=== PATIENT | male | born 1960 | race Caucasian/White ===

== ENCOUNTER 2021-12-03 10:26 | Outpatient (CLI) | payer OTHER, SELFPAY | END 2021-12-03 10:27 | disposition home or self-care (01) | LOC: AMB 12-15 19:36 | PROVIDERS: Visit Provider Family Medicine | DX: R50.9 Fever, unspecified (principal); R11.2 Nausea with vomiting, unspecified | CPT/HCPCS: A0425; A0427 ==

== ENCOUNTER 2025-01-17 10:31 | Emergency (ER) | payer OTHER, SELFPAY ==
--- OUTSIDE RECORDS SUMMARY | 2025-01-17 10:34 | XMS_ITS | Clinical Summary ---
Author Organization [facility] Address [address] [place] [id number] Care Team Providers Care Chemical Blender Name Role Phone Jami Hassan Primary Care Provider Allergies Active Allergy Reactions Criticality Noted Date Comments Levofloxacin Other - Describe In Comment Field 08/29/2015 Chest tightness but per patient only occurs when taking it for extended period of time if only for a few days no issues Lisinopril Cough 08/01/2022 Sulfa (Sulfonamide Antibiotics) Chest Pain 11/18/2013 Medications fluticasone (50 mcg per actuation) nasal solution (FLONASE)Indicati ons:Epigastric pain,Gastroesopha geal reflux disease without esophagitis,Hiata l hernia Inhale 2 Sprays to both nostrils two times daily. 3 Active escitalopram oxalate 10 mg tabletIndications :Panic attacks Take 1 Tablet (10 mg) by mouth once daily in the morning. 90 Tablet 4 5 Active losartan 100 mg tabletIndications :Benign essential HTN Take 1 Tablet (100 mg) by mouth once daily. 90 Tablet 4 5 Active omeprazole 20 mg tabletIndications :Chronic reflux esophagitis Take 1 Tablet (20 mg) by mouth two times daily. 180 Tablet 3 5 Active albuterol HFA 90 mcg/actuation inhalerIndication s:Mild persistent asthma without complication (HC) Inhale 1-2 Puffs by mouth every 4 hours if needed for Shortness of Breath 1st choice. 1 Each 3 5 Active fluticasone propion-salmetero L 500-50 mcg/Dose diskus inhalerIndication s:Mild persistent asthma without complication (HC) Inhale 1 Puff by mouth two times daily. 180 Each 3 5 Active methocarbamoL 750 mg tabletIndications :Muscle spasm Take 1 Tablet (750 mg) by mouth every 6 hours if needed for Muscle Spasm. Take during daytime hours. Do not take with tizanidine. 40 Tablet 5 Active tiZANidine 2 mg tabletIndications :Muscle spasm Take 1-2 Tablets (2-4 mg) by mouth at bedtime. As needed for muscle tightness 60 Tablet 5 Active ALPRAZolam 0.5 mg tabletIndications :Panic attacks,Vertigo Take 1 Tablet (0.5 mg) by mouth 2 times daily if needed (severe vertigo). 30 Tablet 3 5 Active Active Problems Problem Noted Date Diagnosed Date Benign prostatic hyperplasia 11/23/2023 Simons's esophagus without dysplasia 10/16/2023 Overview (10/16/2023): EGD 09/2023 Simons's, repeat EGD in 1 year Peripheral sensory neuropathy 05/17/2021 Vertigo 05/17/2021 Overview (05/17/2021): Uses alprazolam as needed for vertigo which can be induced by anxiety. Elevated PSA 05/17/2021 Colonoscopy refused 01/31/2016 Hyperlipidemia 11/21/2013 Chronic sinusitis 07/18/2013 Overview (05/17/2021): Previously was getting kenalog injections for this. [place]. Jami Hassan D.O. 05/17/2021 5:11 PM FH: colon cancer 06/27/2013 Colon polyp, hyperplastic 06/27/2013 Mild persistent asthma 12/12/2011 Unspecified sinusitis (chronic) 12/12/2011 Panic attacks 12/12/2011 Encounters Date Type Department Care Team Description 11/01/2024 [facility]phone [facility] [address] [place] [address] Maik Cid MD Questions 10/26/2024 1:00 PM CDT Office Visit [facility] [address] [place] [address] Jami Hassan, DO Preoperative Exam (back surgery 11/15/24/Dr. Palak Abbott); Hip Pain/problem (left hip injection) 10/26/2024 Travel 10/24/2024 Telephone [facility] [address] [place] [address] Jami Hassan, DO hip injection/preop (hip injection/preop) 10/21/2024 Travel 10/19/2024 10:15 AM CDT Office Visit [facility] [address] [place] [address] Jami Hassan, DO Hip Pain/problem (Bilateral hip pain x month /); Back Pain (Lower back radiates down left leg ) 10/19/2024 [facility]phone [facility] [address] [place] [phone] Maik Cid MD 10/19/2024 Travel from Last 3 Months Immunizations Immunization Administration Dates Next Due DTaP 01/07/2007 Influenza Virus, Unspecified 01/03/2016, 01/25/2015,05/16/2011,2009 Influenza, IIV3 (Age 6-35 mos) 5,02/02/2012,01/11/2010,2008,02/25/2008 Influenza, IIV3 (Age >=3 years) 05/16/19 12,01/11/2010,03/23/2009,2007 Influenza, IIV4 02/17/2014 Influenza, IIV4 (=>6mos) MDV 01/03/2016 Pneumococcal Poly,23-Valent (Pneumovax) 01/07/2007 Pneumococcal conj 13-Valent (Prevnar 13) 11/10/2014 Td, Preservative Free (age > = 7 Years) 08/01/2022 Tdap 12/12/2011,01/07/2007 Tdap, Unspecified 01/07/2007 Zoster (Zostavax-ZVL, live) 02/17/2014 Family History Medical History Relation Name Comments Alcoholism Brother Hyperlipidemia Brother Cancer-colon Father Coronary artery disease Mother Heart Disease Mother Hyperlipidemia Mother Hypertension Mother Kidney disease Mother Obesity Mother Cancer-prostate Other grandfather Diabetes Other uncle Relation Name Status Comments Brother Father Mother Other Social History Tobacco Use Types Packs/Day Years Used Date Smoking Tobacco: Never Smokeless Tobacco: Never Tobacco Cessation:Counseling Given: Yes Alcohol Use Standard Drinks/Week Comments No 0 (1 standard drink = 0.6 oz pur e alcohol) PHQ-2 Answer Date Recorded PHQ-2 TOTAL SCORE 0 08/05/2024 Social Connections Answer Date Recorded Do you often feel lonely or isolated from those around you? 0 10/14/2024 Financial Resource Strain Answer Date R ecorded Difficulty of Paying Living Expenses 3 10/14/2024 Difficulty of Paying Living Expenses Not on file 10/14/2024 Food Insecurity Answer Date Recorded Do you worry your food will run out before you are able to buy more? 1 10/14/2024 Transportation Needs Answer Date Record ed Does lack of transportation keep you from medica l appointments? 1 10/14/2024 Does lack of transportation keep you from work, meetings or getting things that you need? 1 10/14/2024 Housing Stability Answer Date Recorded What is your housing situation today? 1 10/14/2024 Utilities Answer Date Recorded Do you have trouble paying f or utilities (for example, heat, electricity, water, phone)? 1 10/14/2024 Sex and Gender Information Value Date Recorded Sex Assigned at Not on file Legal Sex Male 6:[address]GE Gender Identity Not on file Sexual Orientation Not on file Obstetrics History Last Filed Vital Signs Vital Sign Reading Time Taken Comments Blood Pressure 126/87 10/26/2024 12:51 PM CDT Pulse 71 10/26/2024 12:51 PM CDT Temperature 36.6 C (97.9 F) 10/06/2024 11:24 AM CDT Respiratory Rate 20 10/06/2024 11:24 AM CDT Oxygen Saturation 97% 10/26/2024 12:51 PM CDT Inhaled Oxygen Concentration - - Weight 83.5 kg (184 lb) 10/26/2024 12:51 PM CDT Height 168.9 cm (5' 6.5) 08/05/2024 9:01 AM CDT Body Mass Index 29.25 08/05/2024 9:01 AM CDT Plan of Treatment Upcoming Encounters Date Type Department Care Team (Late st Contact Info) Description 02/08/2025 10:00 AM CDT Orders Only [facility] [address] [place] [address] [place] 07/31/2025 10:00 AM CDT Orders Only [facility] [address] [place] [address] [place] Health Maintenance Due Date Last Done Comments Zoster (shingles) series for age 50+ (2 of 3) 04/14/2014 02/17/2014 Pneumococcal series for age 50+ (3 of 3 - PCV20 or PCV21) 11/11/2019 11/10/2014, 01/07/2007 RSV vaccine for adults or (1 - Risk 60-74 years 1-dose series) 2020 COVID-19 vaccine series ( season) 2024 Influenza Vaccine (#1) 2024 6, 01/03/2016, 01/25/2015, Additional history exists Colonoscopy through age 75 06/13/202506/13, 02/20/2011, 02/20/2011, Additional history exists BMI (ht and wt on same day) for age 18+ 08/05/2025 08/05/2024, 07/15/2024, 08/03/2023, Additional history exists Depression screening for age 12+ 08/08/2025 08/08/2024, 08/05/2024, 09/14/2023, Additional history exists Lipids for age 45-75 08/05/2029 08/05/2024, 08/03/2023, 08/01/2022, Additional history exists Tetanus booster 08/01/2032 08/01/2022, 11/25, 01/07/2007, Additional history exists Hepatitis C screening for age 18-79 Completed 12/12/2011 HIV for age 15-65 Completed 08/03/2023 Hepatitis B series for 19+ Aged Out N o longer eligible based on patient's age to complete this topic Procedures Procedure Name Priority Date/Time Associated Diagnosis Comments BASIC METABOLIC PANEL Routine 10/26/2024 1:24 PM CDT Benign essential HTN HEMOGLOBIN Routine 10/26/2024 1:24 PM CDT Pre-op exam LIPID PANEL W REFLEX MEASURED LDL Routine 08/05/2024 10:09 AM CDT Hyperlipidemia, unspecified hyperlipidemia type ANTI HIV 1/2 Routine 08/03/2023 9:52 AM CDT Screening for HIV (human immunodeficiency virus) COLONOSCOPY 06/13/2020 7:[address] JUDGE ANTI HCV Routine 12/12/2011 9:05 AM CDT Need for hepatitis C screening test from Last 3 Months or Most Recently Relevant to Health Maintenance Results * HEMOGLOBIN (10/26/2024 1:24 PM CDT) HEMOGLOBIN 16.0 13.2 - 17.1 g/dL [facility] Blood BLOOD SPECIMEN / Unknown 10/26/2024 1:24 PM CDT 10/26/2024 1:24 PM CDT us Jami Laine Detert DO HEMATOLOGY Final Resul t [facility] [address] [place] [address], [place] [phone] [facility] [address] [place] [address] * BASIC METABOLIC PANEL (10/26/2024 1:24 PM CDT) GLUCOSE 89 65 - 99 mg/dL [facility] Comment: Fasting reference interval UREA NITROGEN (BUN) 14 7 - 25 mg/dL [facility] CREATININE 1.12 0.70 - 1.35 mg/dL [facility] EGFR 73 > OR = 60 mL/min/1. 73m2 [facility] BUN/CREATININE RATIO SEE NOTE: 6 - 22 (calc) [facility] Comment: Not Reported: BUN and Creatinine are within reference range. SODIUM 140 135 - 146 mmol/L [facility] POTASSIUM 4.8 3.5 - 5.3 mmol/L [facility] CHLORIDE 102 98 - 110 mmol/L [facility] CARBON DIOXIDE 27 20 - 32 mmol/L [facility] ELECTROLYTE BALANCE 11 7 - 17 mmol/L (calc) [facility] CALCIUM 9.7 8.6 - 10.3 mg/dL [facility] Blood BLOOD SPECIMEN / Unknown 10/26/2024 1:24 PM CDT 10/26/2024 1:24 PM CDT us Jami Kimbrought DO CHEMISTRY Final Resul t [facility] [address] [place] [address], [facility] [address] [place] [phone] * (ABNORMAL) LIPID PANEL W REFLEX MEASURED LDL (08/05/2024 10:09 AM CDT) CHOLESTEROL, TOTAL 194 <200 mg/dL [facility] HDL CHOLESTEROL 42 > OR = 40 mg/dL [facility] TRIGLYCERIDES 123 <150 mg/dL [facility] LDL-CHOLESTEROL 129(H) mg/dL (calc) [facility] Comment: Reference range: <100 Desirable range <100 mg/dL for primary prevention; <70 mg/dL for patients with CHD or diabetic patients with > or = 2 CHD risk factors. LDL-C is now calculated using the Shalonda calculation, which is a validated novel method providing better accuracy than the Friedewald equation in the estimation of LDL-C. Francis LINDQUIST et al. BERNADETTE. 2013;310(19): 8731-9952 (http://education.Jajah.Breadtrip/faq/DNI769) CHOL/HDLC RATIO 4.6 <5.0 (calc) [facility] NON HDL CHOLESTEROL 152(H) <130 mg/dL (calc) [facility] Comment: For patients with diabetes plus 1 major ASCVD risk factor, treating to a non-HDL-C goal of <100 mg/dL (LDL-C of <70 mg/dL) is considered a therapeutic option. Blood BLOOD SPECIMEN / Unknown 08/05/2024 10:09 AM CDT 08/05/2024 10:10 AM CDT Narrative [facility] - 08/06/2024 3:33 AM CDT FASTING:NO FASTING: NO Jami Kimbrought DO CHEMISTRY Final Resul t Performing Organization Address City/[facility]/ZIP Co de Phone Number [facility] [address] [address], [place] [phone] [address] * ANTI HIV 1/2 [11684.0] (08/03/2023 9:52 AM CDT) HIV-1/HIV-2 SCREEN Non-Reacti ve Non-Reacti ve 08/03/2023 4:43 PM CDT [facility] Comment:HIV-1 p24 and HIV-1/ HIV-2 Ab Not Detected. Blood BLOOD SPECIMEN / Unknown Venipuncture / Unknown 08/03/2023 9:52 AM CDT 08/03/2023 9:52 AM CDT Jami Kimbrought DO SEND OUTS Final Resul t [facility] [address] [place] [address], [place] * COLONOSCOPY (06/13/2020 7:[address] JUDGE) 06/13/2020 7:[address] JUDGE Narrative Transcriptions Byron Hester MD - 06/13/2020 8:41 AM CST Patient Name: Dean Paz Procedure Date: 06/13/2020 Gender: Male Date of : 1960 Admit Type: Ambulatory Procedure: Colonoscopy Proceduralist: Byron Hester MD [facility] Referring MD: Leeanne Marshall Indications/Pre-Op Diagnosis: High risk colon cancer surveillance:Personal history of colonic polyps Medications: Propofol per Anesthesia Procedure Description: The procedure, indications, potential complications, (bleeding, perforation, infection, adverse medication reaction, missed lesionsor polyps) and alternatives available were explained to the patient, who appeared to understand and indicated this. Opportunity for questionswas provided and informed consent obtained. The colonoscopy was passed through the anus and advanced to thececum, identified by appendiceal orifice and ileocecal valve. Thecolonoscopy was performed without difficulty. The patient tolerated the procedure well. The quality of the bowel preparation was good. Complications: No immediate complications. Estimated blood loss: Minimal. Estimated Blood Loss & Specimen: Estimated blood loss was minimal. Specimen collected: Yes and sent to Laboratory Findings: The perianal and digital rectal examinations were normal. A 2 mm polyp was found in the ascending colon. The polyp was pedunculated. The polyp was removed with a cold biopsy forceps. Resection and retrieval were complete. Verification of patient identification for the specimen was done by the physician, nurse and county program technician using the patient's name, date and medical record number. Estimated blood loss was minimal. The exam was otherwise without abnormality on direct and retroflexion views. Impressions/Post-Op Diagnosis: - One 2 mm polyp in the ascending colon, removed with a cold biopsy forceps. Resected and retrieved. - The examination was otherwise normal on direct and retroflexionviews. Recommendation: - Discharge patient to home. - Resume previous diet. - Continue present medications. - Await pathology results. - Repeat colonoscopy in 5 years for surveillance. - Return to referring physician at the next available appointment. Moderate Sedation: Moderate (conscious) sedation was personally administered by an anesthesia professional. The following parameters were monitored:oxygen saturation, heart rate, blood pressure, and response to care. Total physician intraservice time was 40 minutes. Byron Hester MD 06/13/2020 8:41:10 AM Note Initiated On: 06/13/2020 7:57 AM us Byron Hester MD PROCEDURE ORD Final Result * ANTI HCV (12/12/2011 9:05 AM CDT) ANTI HCV Non-reacti ve [facility] Blood specimen (specimen) BLOOD SPECIMEN / Unknown 12/12/2011 9:05 AM CDT 12/12/2011 8:58 AM CDT us Tor Hopson MD SEND OUTS Final Resul t [facility] INTERNAL ZIP [address] [place] [address] from Last 3 Months or Most Recently Relevant to Health Maintenance Insurance MEDICARE ADVANTAGE [place] [id number] MEDICARE PART A HB ONLY COSMETIC PROCEDURE HB ONLY . [facility] [id number] Advance Directives * Full Code (Latest Code Status on File) Date Activated Date Inactivated Comments 07/19/2024 10:41 AM 07/19/2024 5:56 PM Question Answer Comments Code Status Discussion: Per Existing Order * Full Code Date Activated Date Inactivated Comments 06/13/2020 5:57 AM 06/13/2020 11:32 AM Question Answer Comments Code Status Discussion: Not Discussed Care Teams Chemical Blender Relationship Specialty Start Date End Date [place] [address] PCP - General Family Practice 02/25/21
--- OUTSIDE RECORDS SUMMARY | 2025-01-17 10:34 | XMS_ITS | Clinical Summary ---
Author Organization [facility] Address [address] [place] [address] Care Team Providers Care Preschool Director Name Role Phone Needs Pcp, Assignment Primary Care Provider Source Comments You are receiving this document as you are listed as the primary care provider,follow-up provider, or the patient has been referred to you for consultation.This is in compliance with the Medicare and[facility] EHR Incentive Program,which states Providers who transition their patient to another setting of careor provider of care or refers their patient to another provider of care shouldprovide summary care record for each transition of care or referral. [facility] Allergies No known active allergies Medications ALBUTEROL IN Inhale 1-2 puffs every 4 hours as needed. LW Addl Instr:Prefer Ventolin HFA or Proventil over Proair 17 11 7 Active mometasone (AKA NASONEX) 50 MCG/ACT nasal solution Place 2 sprays into each nostril daily (every 24 hours). 17 7 Active methylPREDNISol one (MEDROL) 4 MG tablet LW Addl Instr:take 3 tabs x 4 days; 2 tabs x 3 days; 1 tab x 3 days; then stop 21 7 Active fluticasone-otilio meterol (AKA ADVAIR HFA) 230-21 mcg/actuation inhaler Inhale 2 puffs every 12 hours. 12 7 Active GENTAMICIN 80 MG IN NS, SURGERY ONLY, 20 mLs 3 times daily. LW Addl Instr:ROMANA'S SOLUTION: ONE LITER OF SALINE CONTAINING 80MG OF GENTAMICIN 11 11/02/200 7 Active Active Problems Problem Noted Date Diagnosed Date Mass of left finger 08/04/2023 Asthma 10/01/2002 Overview (12/17/2016): Asthma NOS Nasal polyp 10/01/2002 Overview (12/17/2016): Nasal Polyp NOS Social History Tobacco Use Types Packs/Day Years Used Date Smoking Tobacco: Never Assessed Sex and Gender Information Value Date Recorded Sex Assigned at Not on file Legal Sex Male 10:58 AM CDT Gender Identity Not on file Sexual Orientation Not on file Last Filed Vital Signs Vital Sign Reading Time Taken Comments Blood Pressure 128/84 02/26/2007 3:52 PM CDT Pulse - - Temperature - - Respiratory Rate - - Oxygen Saturation - - Inhaled Oxygen Concentration - - Weight 81.6 kg (179 lb 15.7 oz) 007 3:52 PM CDT C: 81.6kg Height 168.9 cm (5' 6.5) 02/26/2007 3: 52 PM CDT C: 168.9cm Body Mass Index 28.61 02/26/2007 3:52 PM CDT Plan of Treatment Health Maintenance Due Date Last Done Comments Colon Cancer Screening Plan Due 1960 Hep C Screening (Preventive Services) 1960 Cholesterol 1995 Zoster/Shingles Vaccine (2 of 3) 04/14/2014 02/17/2014 Pneumococcal Vaccine 50+ Yrs (3 of 3 - PCV20 or PCV21) 11/11/2019 11/10/2014, 01/07/2007 Medicare Annual Wellness Visit 04/27/2024 PSA Screening Discussion 08/02/2024 08/03/2023 COVID-19 Vaccine ( season) 2024 Influenza Vaccine (#1) 2024 6, 01/25/2015, 01/02/2015, Additional history exists DTaP/Tdap/Td Vaccine (5 - Tdap) 08/01/2032 08/01/2022, 12/12/2011, 01/07/2007, Additional history exists RSV Vaccine (1 - 1-dose 75+ series) 2035 HIV Screening (Preventive Services) Completed 08/03/2023 HepA Vaccine Aged Out No longer eligi ble based on patient's age to complete this topic HepB Vaccine Aged Out No longer eligi ble based on patient's age to complete this topic Hib Vaccine Aged Out No longer eligi ble based on patient's age to complete this topic IPV (Polio) Vaccine Aged Out No longe r eligible based on patient's age to complete this topic MCV4 Vaccine Aged Out No longer eligi ble based on patient's age to complete this topic Meningococcal B Vaccine Aged Out No l onger eligible based on patient's age to complete this topic Insurance MEDICARE ADVANTAGE Care Teams Preschool Director Relationship Specialty Start Date End Date Needs Pcp, [place] [address] PCP - General 08/13/23
[2025-01-17 10:40] VITALS: BP 146/78; PULSE 79; RESP 20; TEMP 36.6; O2SAT 94; BMI 29.0
--- NOTE | 2025-01-17 11:02 | CRLHL7_ITS ---
For Patients: As a result of the Century Cures Act, medical imaging exams and procedure reports are released immediately into your electronic medical record. You may view this report before your referring provider. If you have questions, please contact your health care provider. INDICATION: Left flank pain COMPARISON: None. TECHNIQUE: CT of the abdomen and pelvis without intravenous contrast. FINDINGS: Please note that absence of intravenous contrast limits evaluation of soft tissue and vascular structures. Lung bases: No pleural effusion. There is a punctate calcification associated with the right hemidiaphragm. Partially imaged coronary artery calcification. Liver: Smooth hepatic contour. Gallbladder and biliary tree: Unremarkable noncontrast CT appearance. Spleen: No splenomegaly. Pancreas: Unremarkable noncontrast CT appearance. Adrenal glands: Normal. Kidneys and ureters: No hydroureteronephrosis. No calculus. Bladder: Unremarkable noncontrast CT appearance. Visualized reproductive organs: Enlarged prostate measuring 6.4 centimeters in the axial plane. Gastrointestinal tract: No focal abnormally dilated loops of bowel. Normal appendix. Peritoneal cavity: No free fluid or free air. Lymph nodes: No enlarged abdominal or pelvic lymph nodes by CT size criteria. Vessels: No abdominal aortic aneurysm. Severe aortic calcifications. Abdominal and pelvic wall: Tiny fat containing umbilical hernia. Small fat containing right inguinal hernia and/or lipomatosis of the spermatic cord. Bones: Diffuse osseous demineralization. There are osseous degenerative changes. Multilevel mild vertebral body wedging most conspicuous at the inferior thoracic spine. IMPRESSION: 1. No acute noncontrast CT findings in the abdomen or pelvis. 2. Please see above for multiple chronic and incidental findings. Please note that all CT scans at this facility use dose modulation, iterative reconstruction, and/or weight-based dosing when appropriate to reduce radiation dose to as low as reasonably achievable. Dictated by Car Briseno MD @ 01/17/2025 12:06:45 PM (Electronically Signed)
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
[2025-01-17 11:30] LABS: Hematocrit* 43.9 % (37.0-53.0); Hemoglobin* 15.1 gm/dL (13.5-17.5); Immature Granulocytes Pct Auto 0.7 %; Mean Corpuscular HGB Conc 34 gm/dL (32-36); Mean Corpuscular Hemoglobin 31 pg (26-34); Mean Corpuscular Volume 91 fL (80-100); RDW Coefficient of Variation % 13.4 % (11.5-15.5); Red Blood Count* 4.84 m/uL (4.30-5.90); White Blood Count* 17.63 K/uL (4.50-11.00)
[2025-01-17] MEDS: LACTATED RINGERS 1000 ML 1,000 ML IV (11:37)
[2025-01-17 11:39] LABS: Immature Granulocytes Abs Auto 0.10 K/uL (0.00-0.30); Lymphocytes Absolute Auto 1.90 K/uL (0.90-2.90); Slide Review Reflex No
[2025-01-17 11:44] LABS: Albumin* 3.8 g/dL (3.3-5.0); Chloride* 104 mmol/L (96-114); Sodium* 137 mmol/L (135-149)
[2025-01-17 11:45] LABS: Potassium* 3.9 mmol/L (3.6-5.1)
[2025-01-17 11:47] LABS: Alanine Aminotransferase* 21 U/L (4-50); Alkaline Phosphatase* 70 U/L (40-150); Anion Gap 7 mEq/L (7-15); Aspartate Amino Transferase* 25 U/L (12-35); Bilirubin Total* 1.4 mg/dL (0.1-1.5); Blood Urea Nitrogen* 17 mg/dL (7-30); Carbon Dioxide* 26 mmol/L (20-32); Creatinine* 0.9 mg/dL (0.5-1.5); Est. Creatinine Clearance* 69.77; Estimated Glomerular Filt Rate 95 ml/min; Total Protein* 6.8 g/dL (6.0-8.3)
[2025-01-17 11:48] LABS: Calcium* 8.4 mg/dL (8.4-10.6); Glucose* 100 mg/dL (60-115)
[2025-01-17 11:55] VITALS: BP 152/93; PULSE 73; RESP 18; O2SAT 95
[2025-01-17] MEDS: MORPHINE 4 MG/ML INJ IVP (11:56)
[2025-01-17] MEDS: ONDANSETRON 2 MG/ML inj 4 MG IVP (12:02)
[2025-01-17 12:35] VITALS: BP 146/90; PULSE 77; RESP 16; O2SAT 94
[2025-01-17 13:00] VITALS: BP 139/89; PULSE 67; RESP 18; O2SAT 93
[2025-01-17 13:22] LABS: Appearance Urine Clear (Clear)
[2025-01-17 14:54] LABS: Erythrocyte SedimentationRate* 2 mm/hr (2-15)
[2025-01-17 15:18] LABS: Procalcitonin* 0.07 ng/mL (<0.50)
== END 2025-01-17 14:14 | disposition home or self-care (01) ==
PROVIDERS: Emergency Provider Student in an Organized Health Care Education/Training Program; PCP Family Medicine
DX: M54.16 Radiculopathy, lumbar region (principal)
CPT/HCPCS: 36415; 74176; 80053; 81001; 84145; 85025; 85651; 86140; 96374; 96375; 99284; J1885; J2270; J2405; J7120